=== PATIENT | male | born 1965 | race Caucasian/White ===

== ENCOUNTER 2017-11-01 18:35 | Emergency (ER) | payer OTHER ==
[~2017-11-01] VITALS: Ht 185.4 cm; Wt 164.2 kg
[~2017-11-01 18:35] MED LIST: ASPIR-LOW81 MG PO; METFORMIN HCL500 MG PO; PRAVACHOL40 MG PO
[2017-11-01 18:55] LABS: HEMATOCRIT 46.1 % (38.0-50.0); MCH 29.6 PG (29.0-34.0); MCHC 35.1 G/DL (30.0-36.0); MCV 84.1 FL (86-99); MEAN PLAT.VOLUME 9.9 uM^3 (9.0-12.4); PLATELET COUNT 171 K/uL (156-360); RBC DIS.WIDTH-CV 13.1 % (11.8-14.6); RBC DIS.WIDTH-SD 40.4 % (39-53); RED BLOOD COUNT 5.48 M/uL (4.00-5.50); WHITE BLOOD COUNT 6.5 K/uL (4.1-10.2)
[2017-11-01 19:14] LABS: CHLORIDE 103 mEq/L (99-109); POTASSIUM 4.1 mEq/L (3.7-5.4); SODIUM 138 mEq/L (136-147)
[2017-11-01 19:16] LABS: GLUCOSE 310 mg/dL (70-99)
[2017-11-01 19:17] LABS: ANION GAP 14 MEQ/L (2-14)
[2017-11-01 19:18] LABS: TOTAL BILIRUBIN 0.7 mg/dL (0.0-1.0)
[2017-11-01 19:20] LABS: ALKALINE PHOSPHATASE 52 IU/L (3-129); GFR ESTIMATE (CALCULATED) > 59 mL/min/ (58.99-99999)
[2017-11-01 19:21] LABS: UREA NITROGEN (BUN) 21 mg/dL (9-23)
[2017-11-01 19:23] LABS: LIPASE 24 U/L (1.0-51.0)
[2017-11-01 20:10] LABS: ADD MIUA? NO; BILIRUBIN NEGATIVE; BLOOD NEGATIVE; COLOR YELLOW ((YELLOW)); GLUCOSE (STRIP) >=500; KETONES 80; LEUKOCYTES NEGATIVE; NITRITE NEGATIVE; PROTEIN (STRIP) 30; SPECIFIC GRAVITY 1.029 (1.000-1.030); UCUL ADDED? NO; UROBILINOGEN 0.2 MG/DL (0.2-1.0)
[2017-11-01] MEDS ORDERED: ZOFRAN4 MG PO (21:45)
[2017-11-01] MEDS ORDERED: TRAMADOL HCL50 MG PO (21:45)
[2017-11-01 21:56] VITALS: BP 176/91
== END 2017-11-01 21:56 | disposition home or self-care (01) ==
LOC: EME 18:35
DX: K52.9 Noninfective gastroenteritis and colitis, unspecified (principal); R73.9 Hyperglycemia, unspecified; Z87.442 Personal history of urinary calculi; Z90.49 Acquired absence of other specified parts of digestive tract
CPT/HCPCS: 74174; 80053; 81003; 83690; 85027; 99281; 99284; J2405; J3010; J7030